=== PATIENT | female | born 1990 | race Caucasian/White ===

== ENCOUNTER 2023-06-24 14:04 | Emergency (ER) | payer OTHER ==
[~2023-06-24] VITALS: Ht 147.3 cm; Wt 56.0 kg
[2023-06-24 14:08] VITALS: BP 126/73
[2023-06-24 14:15] VITALS: BP 129/64
[2023-06-24 14:30] VITALS: BP 122/71
[2023-06-24 14:45] VITALS: BP 116/75
[2023-06-24 14:53] VITALS: BP 122/71
== END 2023-06-24 14:56 | disposition home or self-care (01) | DRG 923 ==
LOC: ED 14:04
DX: Z04.1 Encounter for examination and observation following transport accident (principal); F84.0 Autistic disorder; E11.9 Type 2 diabetes mellitus without complications